=== PATIENT | male | born 1960 | race Caucasian/White ===

== ENCOUNTER 2018-03-31 22:18 | Observation (INO) | payer MEDICAID ==
[~2018-03-31] VITALS: Ht 177.8 cm; Wt 189.0 kg
[~2018-03-31 22:18] MED LIST: AMOX1TAB12 PO; ASPI-496 PO; CARV12.543 PO; FOLI-17 PO; FURO-92 PO; HYDR-3237 PO; HYDR25TA6 PO; LEVO200T5 PO; LEVO750T6 PO; LOSA25TA6 PO; METF500T17 PO; MULT-750 PO; OMEP-110 PO; SULF-169 PO; THIA100T67 PO
[2018-03-31] MEDS ORDERED: LOSA50TA7 PO (23:02)
[2018-03-31] MEDS ORDERED: DILT120C64 PO (23:02)
[2018-03-31] MEDS ORDERED: SPIR25TA5 PO (23:02)
[2018-03-31] MEDS ORDERED: ATOR40TA78 PO (23:02)
[2018-03-31] MEDS ORDERED: LEVO75TA5 PO (23:02)
[2018-03-31] MEDS ORDERED: ASCO500C2 PO (23:02)
[2018-03-31 23:18] LABS: INTERNATIONAL NORMALIZED RATIO 1.1 (0.93-1.1); PROTHROMBIN TIME 11.6 Seconds (9.6-11.5)
[2018-03-31 23:19] LABS: ALBUMIN 3.6 g/dL (3.4-5.0); ANION GAP 9 mmol/L (5-15); CALCIUM 9.3 mg/dL (8.5-10.1); CHLORIDE 105 mmol/L (98-107); CREATININE 0.76 mg/dL (0.7-1.3)
[2018-03-31 23:23] LABS: TROPONIN I < 0.015 ng/mL (0.000-0.045)
[2018-03-31 23:54] LABS: BASOPHILS # (AUTO) 0.08 x10^3/uL (0-0.1); BASOPHILS % (AUTO) 1 % (0-1); EOSINOPHILS # (AUTO) 0.29 x10^3/uL (0-0.4); EOSINOPHILS % (AUTO) 4 % (1-7); LYMPHOCYTES # (AUTO) 1.33 x10^3/uL (1-3.4); LYMPHOCYTES % (AUTO) 19 % (22-44); MD SCAN; MEAN CORPUSCULAR HEMOGLOBIN 33.5 pg (27.5-34.5); MEAN CORPUSCULAR HGB CONC 34.2 g/dL (33.2-36.2); MEAN CORPUSCULAR VOLUME 98.1 fL (81-97); MEAN PLATELET VOLUME 8.7 fL (7.4-10.4); MONOCYTES # (AUTO) 0.43 x10^3/uL (0.2-0.8); MONOCYTES % (AUTO) 6 % (2-9); NEUTROPHILS # (AUTO) 5.03 x10^3/uL (1.8-6.8); NEUTROPHILS % (AUTO) 70 % (42-75); PLATELET COUNT 90 x10^3/uL (130-400); RED BLOOD COUNT 4.38 x10^6/uL (4.38-5.82); RED CELL DISTRIBUTION WIDTH 14.4 % (9.4-14.8)
[2018-04-01 01:27] VITALS: BP 126/76
[2018-04-01] MEDS ORDERED: HYDROcodone/APAP 5/325 TABLET PO ONE (02:00)
[2018-04-01] MEDS ORDERED: DEXTROSE 50%, 50ML SYRINGE IVPush PRN (05:00)
[2018-04-01] MEDS ORDERED: DOCUSATE 100 MG CAPSULE PO PRN (05:00)
[2018-04-01] MEDS ORDERED: ACETAMINOPHEN 325 MG TABLET PO PRN (05:00)
[2018-04-01] MEDS ORDERED: DEXTROSE 4 GM TAB.CHEW PO PRN (05:00)
[2018-04-01] MEDS ORDERED: POLYETHYLENE GLYCOL 17 GM PACKET PO PRN (05:00)
[2018-04-01] MEDS ORDERED: ONDANSETRON 2MG/ML, 2ML IVPush PRN (05:00)
[2018-04-01] MEDS ORDERED: GLUCAGON 1 MG IM PRN (05:00)
[2018-04-01] MEDS: LEVOTHYROXINE 75 MCG TABLET PO SCH (06:22)
[2018-04-01] MEDS: INSULIN LISPRO 100 UNITS/ML, PEN SQ-INSULIN SCH ×4 (07:00→21:00)
[2018-04-01 07:40] VITALS: BP 151/80
[2018-04-01] MEDS: SODIUM CHLORIDE FLUSH 10ML SYR IVF SCH ×4 (09:00→21:17)
[2018-04-01] MEDS: SENNA/DOCUSATE TABLET PO SCH (09:00)
[2018-04-01] MEDS: THIAMINE 100MG TABLET PO SCH (09:07)
[2018-04-01] MEDS: LOSARTAN 50MG TABLET PO SCH (09:07)
[2018-04-01] MEDS: MULTIVITAMIN 1 TABLET PO SCH (09:07)
[2018-04-01] MEDS: SPIRONOLACTONE 25 MG TABLET PO SCH ×2 (09:07→21:16)
[2018-04-01] MEDS: HYDROcodone/APAP 5/325 TABLET PO PRN ×2 (09:07→21:30)
[2018-04-01] MEDS: FOLIC ACID 1 MG TABLET PO SCH (09:07)
[2018-04-01] MEDS: CARVEDILOL 12.5 MG TABLET PO SCH ×2 (09:08→21:16)
[2018-04-01] MEDS: ASCORBIC ACID 500 MG TABLET PO SCH (09:08)
[2018-04-01] MEDS: FUROSEMIDE 40 MG TABLET PO SCH ×2 (09:08→21:16)
[2018-04-01] MEDS: DILTIAZEM 120 MG CAP.ER.12H PO SCH ×2 (09:08→21:00)
[2018-04-01] MEDS: ENOXAPARIN 40 MG/0.4 ML SQ SCH (09:09)
[2018-04-01 13:30] VITALS: BP 122/61
[2018-04-01 20:45] VITALS: BP 107/56
[2018-04-01 21:14] VITALS: BP 117/62
[2018-04-01] MEDS: ATORVASTATIN 40 MG TABLET PO SCH (21:16)
[2018-04-02 00:37] VITALS: BP 105/61
[2018-04-02] MEDS: LEVOTHYROXINE 75 MCG TABLET PO SCH (05:20)
[2018-04-02 06:07] LABS: MEAN CORPUSCULAR HEMOGLOBIN 33.6 pg (27.5-34.5); MEAN CORPUSCULAR HGB CONC 33.8 g/dL (33.2-36.2); MEAN CORPUSCULAR VOLUME 99.3 fL (81-97); RED BLOOD COUNT 4.06 x10^6/uL (4.38-5.82); RED CELL DISTRIBUTION WIDTH 14.6 % (9.4-14.8)
[2018-04-02 06:12] LABS: ANION GAP 7 mmol/L (5-15); CALCIUM 9.5 mg/dL (8.5-10.1); CHLORIDE 102 mmol/L (98-107)
[2018-04-02 06:14] LABS: CREATININE 1.54 mg/dL (0.7-1.3)
[2018-04-02 06:39] LABS: BASOPHILS # (AUTO) 0.06 x10^3/uL (0-0.1); BASOPHILS % (AUTO) 1 % (0-1); EOSINOPHILS # (AUTO) 0.35 x10^3/uL (0-0.4); EOSINOPHILS % (AUTO) 4 % (1-7); LYMPHOCYTES # (AUTO) 1.55 x10^3/uL (1-3.4); LYMPHOCYTES % (AUTO) 19 % (22-44); MD SCAN; MEAN PLATELET VOLUME 8.7 fL (7.4-10.4); MONOCYTES # (AUTO) 0.64 x10^3/uL (0.2-0.8); MONOCYTES % (AUTO) 8 % (2-9); NEUTROPHILS # (AUTO) 5.73 x10^3/uL (1.8-6.8); NEUTROPHILS % (AUTO) 69 % (42-75); PLATELET COUNT 98 x10^3/uL (130-400)
[2018-04-02 07:00] VITALS: BP 102/58
[2018-04-02] MEDS: INSULIN LISPRO 100 UNITS/ML, PEN SQ-INSULIN SCH ×4 (07:00→20:57)
[2018-04-02] MEDS: SODIUM CHLORIDE FLUSH 10ML SYR IVF SCH ×4 (09:00→20:56)
[2018-04-02] MEDS: DILTIAZEM 120 MG CAP.ER.12H PO SCH ×2 (09:00→20:43)
[2018-04-02] MEDS: LOSARTAN 50MG TABLET PO SCH (09:00)
[2018-04-02] MEDS: CARVEDILOL 12.5 MG TABLET PO SCH ×2 (09:00→20:57)
[2018-04-02] MEDS: SPIRONOLACTONE 25 MG TABLET PO SCH (09:48)
[2018-04-02] MEDS: SENNA/DOCUSATE TABLET PO SCH (09:48)
[2018-04-02] MEDS: MULTIVITAMIN 1 TABLET PO SCH (09:48)
[2018-04-02] MEDS: ENOXAPARIN 40 MG/0.4 ML SQ SCH (09:48)
[2018-04-02] MEDS: ASCORBIC ACID 500 MG TABLET PO SCH (09:48)
[2018-04-02] MEDS: FOLIC ACID 1 MG TABLET PO SCH (09:48)
[2018-04-02] MEDS: FUROSEMIDE 40 MG TABLET PO SCH (09:49)
[2018-04-02] MEDS: THIAMINE 100MG TABLET PO SCH (09:49)
[2018-04-02 12:05] VITALS: BP 103/58
[2018-04-02] MEDS: HYDROcodone/APAP 5/325 TABLET PO PRN (12:43)
[2018-04-02] MEDS: SODIUM CHLORIDE 0.9% 1,000 ML IV SCH ×2 (12:43→15:34)
[2018-04-02 17:23] LABS: ANION GAP 7 mmol/L (5-15); CALCIUM 9.6 mg/dL (8.5-10.1); CHLORIDE 101 mmol/L (98-107); CREATININE 1.13 mg/dL (0.7-1.3)
[2018-04-02 20:43] VITALS: BP 130/74
[2018-04-02] MEDS: ATORVASTATIN 40 MG TABLET PO SCH (20:56)
[2018-04-03] MEDS: HYDROcodone/APAP 5/325 TABLET PO PRN ×2 (01:54→10:01)
[2018-04-03 02:47] VITALS: BP 118/70
[2018-04-03 05:28] LABS: MEAN CORPUSCULAR HEMOGLOBIN 33.6 pg (27.5-34.5); MEAN CORPUSCULAR HGB CONC 34.2 g/dL (33.2-36.2); MEAN CORPUSCULAR VOLUME 98.2 fL (81-97); MEAN PLATELET VOLUME 8.5 fL (7.4-10.4); PLATELET COUNT 93 x10^3/uL (130-400); RED CELL DISTRIBUTION WIDTH 14.3 % (9.4-14.8)
[2018-04-03 05:40] LABS: CALCIUM 9.2 mg/dL (8.5-10.1); CHLORIDE 103 mmol/L (98-107)
[2018-04-03 05:48] LABS: ANION GAP 7 mmol/L (5-15); CREATININE 0.89 mg/dL (0.7-1.3)
[2018-04-03] MEDS: LEVOTHYROXINE 75 MCG TABLET PO SCH (05:53)
[2018-04-03 06:05] LABS: BASOPHILS # (AUTO) 0.04 x10^3/uL (0-0.1); BASOPHILS % (AUTO) 1 % (0-1); EOSINOPHILS # (AUTO) 0.33 x10^3/uL (0-0.4); EOSINOPHILS % (AUTO) 5 % (1-7); LYMPHOCYTES # (AUTO) 1.35 x10^3/uL (1-3.4); LYMPHOCYTES % (AUTO) 19 % (22-44); MD SCAN; MONOCYTES # (AUTO) 0.51 x10^3/uL (0.2-0.8); MONOCYTES % (AUTO) 7 % (2-9); NEUTROPHILS # (AUTO) 4.87 x10^3/uL (1.8-6.8); NEUTROPHILS % (AUTO) 69 % (42-75)
[2018-04-03 07:54] VITALS: BP 107/62
[2018-04-03] MEDS: INSULIN LISPRO 100 UNITS/ML, PEN SQ-INSULIN SCH ×2 (07:56→11:49)
[2018-04-03] MEDS: SODIUM CHLORIDE FLUSH 10ML SYR IVF SCH ×2 (09:00→09:54)
[2018-04-03] MEDS: FOLIC ACID 1 MG TABLET PO SCH (09:53)
[2018-04-03] MEDS: DILTIAZEM 120 MG CAP.ER.12H PO SCH ×2 (09:53→09:56)
[2018-04-03] MEDS: MULTIVITAMIN 1 TABLET PO SCH (09:54)
[2018-04-03] MEDS: ASCORBIC ACID 500 MG TABLET PO SCH (09:54)
[2018-04-03] MEDS: ENOXAPARIN 40 MG/0.4 ML SQ SCH (09:54)
[2018-04-03] MEDS: LOSARTAN 50MG TABLET PO SCH (09:54)
[2018-04-03] MEDS: CARVEDILOL 12.5 MG TABLET PO SCH (09:54)
[2018-04-03] MEDS: THIAMINE 100MG TABLET PO SCH (09:54)
[2018-04-03] MEDS: SENNA/DOCUSATE TABLET PO SCH (09:55)
== END 2018-04-03 16:00 | disposition home or self-care (01) ==
LOC: ED 23:31 → EDIP 04-01 00:19 → INTOOBSV 04-01 00:19 → 5SO 04-01 01:07 → DCLOUNGE 04-03 15:40
PROVIDERS: ADMIT Family Medicine; ATTEND Family Medicine
DX: R55 Syncope and collapse (principal); G47.33 Obstructive sleep apnea (adult) (pediatric); I10 Essential (primary) hypertension; E78.5 Hyperlipidemia, unspecified; E11.43 Type 2 diabetes mellitus with diabetic autonomic (poly)neuropathy; E11.51 Type 2 diabetes mellitus with diabetic peripheral angiopathy without gangrene; I11.0 Hypertensive heart disease with heart failure; I48.91 Unspecified atrial fibrillation; I50.9 Heart failure, unspecified; I45.10 Unspecified right bundle-branch block; Z68.44 Body mass index [BMI] 60.0-69.9, adult; Z87.891 Personal history of nicotine dependence
CPT/HCPCS: 36415; 70450; 71045; 72125; 72190; 80048; 82040; 82962; 83880; 84484; 85025; 85610; 93005; 93306; 93880; 96360; 96361; 96372; 97161; 97166; 97530; 99284; G0378; G8978; G8979; G8980; J1650; J7030; 99285; J1815